=== PATIENT | male | born 1995 | race African-American/Black ===

== ENCOUNTER 2022-06-21 01:50 | Emergency (ER) | payer OTHER, SELFPAY ==
[2022-06-21 01:54] VITALS: BP 157/92; PULSE 99; RESP 18; TEMP 36.2; O2SAT 98
--- NOTE | 2022-06-21 02:05 | ED.DENTAL ---
HPI - Dental/Oral General Chief complaint: Dental/Oral Stated complaint: toothache Time Seen by Provider: 06/21/22 02:00 Source: patient Mode of arrival: ambulatory Limitations: no limitations History of Present Illness HPI Narrative: Patient presents to the emergency department for tooth ache noted over the last month. Reports he has a broken tooth that has been bothering him. He has an appointment with a dentist, but it is not till next month. Denies fever, erythema, or edema. MD Complaint: tooth pain Location: Tooth # (5) Related Data Allergies Allergy/AdvReac Type Severity Reaction Status Date / Time No Known Allergies Allergy Verified 06/21/22 01:51 Review of Systems Review of Systems: CONSTITUTIONAL: Denies fever ENT: Reports dentalgia All systems reviewed & are unremarkable except as noted in HPI and below PMFSH Past Medical History Medical History (Updated 06/21/22 @ 02:07 by Jojo Rodriguez PA-C) Bipolar depression Social History Social History (Updated 06/21/22 @ 02:07 by Jojo Rodriguez PA-C) Smoking status: Current some day smoker Tobacco type: e-cigarettes/vaping Exam Narrative: GENERAL: Well-appearing, well-nourished, and in no acute distress. HEAD: Normocephalic, atraumatic. EYES: EOMI. ENT: Mucous membranes moist. Oropharynx without tonsillar hypertrophy exudate or other lesions. Tooth #5 is broken without surrounding erythema or edema to suggest abscess NECK: Supple. No adenopathy or masses. CHEST: Clear to auscultation. No respiratory distress. No wheezes rales or rhonchi HEART: Regular rate and rhythm. No murmur heard. Normal peripheral pulses. EXTREMITIES: Normal range of motion. No edema. SKIN: Warm, dry, no rash. NEURO: No focal deficits. Alert and oriented x3. PSYCH: Normal mood and affect Course Vital Signs Vital signs: Vital Signs Temperature 97.2 F L 06/21/22 01:54 Pulse Rate 99 06/21/22 01:54 Respiratory Rate 18 06/21/22 01:54 Blood Pressure 157/92 H 06/21/22 01:54 Pulse Oximetry 98 06/21/22 01:54 Oxygen Delivery Room Air 06/21/22 01:54 Temperature 97.2 F L 06/21/22 01:54 Pulse Rate 99 06/21/22 01:54 Respiratory Rate 18 06/21/22 01:54 Blood Pressure 157/92 H 06/21/22 01:54 Pulse Oximetry 98 06/21/22 01:54 Oxygen Delivery Room Air 06/21/22 01:54 MDM - Dental/Oral MDM Narrative Medical decision making narrative: Patient presents to the ER for dentalgia. He is afebrile and nontoxic-appearing. No evidence for abscess on exam. Patient will be started on oral antibiotics and was instructed to follow-up with his dentist. He was given warnings to return to the ER Discharge Plan Discharge Clinical Impression: Toothache Patient Disposition: Home, Self-Care Condition: Stable Instructions: Antibiotic Form, Toothache (ED) Additional Instructions: Return to the Emergency Department if you experience fever >101, increasing swelling and redness of your tooth, or any other symptoms that are concerning to you Take antibiotic as prescribed. Tylenol or Ibuprofen as needed for pain. You can apply a dab of clove oil to a Qtip and apply to the tooth to help numb the area Follow up with your dentist Prescriptions: New amoxicillin-pot clavulanate 875-125 mg tablet 1 tablet PO Q12H 7 Days Qty: 14 0RF Follow-up/Referrals: PHYSICIAN,LAUNDRY EQUIPMENT OPERATOR [Primary Care Provider] -
[2022-06-21 02:47] VITALS: BP 150/78; PULSE 82; RESP 18; O2SAT 98
== END 2022-06-21 02:51 | disposition home or self-care (01) ==
LOC: ANHED 02:15
PROVIDERS: Emergency Provider General Practice
DX: K08.89 Other specified disorders of teeth and supporting structures (principal); F17.210 Nicotine dependence, cigarettes, uncomplicated; F31.9 Bipolar disorder, unspecified
CPT/HCPCS: 99283

== ENCOUNTER 2023-04-17 13:41 | Inpatient (IN) | payer MEDICAID, SELFPAY ==
[2023-04-17] VITALS (11 sets, daily range): BP systolic 123–159; BP diastolic 75–98; PULSE 61–117; RESP 13–25; TEMP 36.3–36.6; O2SAT 98–100; BMI 37.1
[2023-04-17 14:11] LABS: Glucose Point of Care > 500 mg/dl (65-105)
[2023-04-17 14:20] LABS: Basophils Percent Auto 0.5 % (0.2-1.2); Eosinophils Percent Auto 0.7 % (0-4.4); Hematocrit 46.8 % (42.0-52.0); Immature Granulocyte Absolute 0.02 K/mm3 (0.00-0.031); Immature Granulocyte Percent A 0.4 % (0-0.5); Lymphocytes Absolute Auto 1.44 K/mm3 (0.9-3.2); Lymphocytes Percent Auto 25.4 % (18.3-44.2); Mean Corpuscular HGB Conc 34.2 g/dl (32-36); Mean Corpuscular Hemoglobin 26.8 pg (26-34); Mean Corpuscular Volume 78.3 fl (80-100); Mean Platelet Volume 12.9 fl (7.4-10.4); Monocytes Absolute Auto 0.5 K/mm3 (0.1-0.6); Monocytes Percent Auto 8.5 % (2.6-8.5); Neutrophils Absolute Auto 3.7 K/mm3 (1.3-6.7); Neutrophils Percent Auto 64.5 % (45.5-73.1); Platelet Count Result 212 k/mm3 (150-375); Red Blood Count 5.98 M/mm3 (4.6-6.20); Red Cell Distribution Width 12.1 % (11.5-14.5); White Blood Count 5.7 K/mm3 (4.5-10.0)
[2023-04-17 14:39] LABS: Appearance Urine Clear (Clear); Bacteria Urine None Seen /hpf; Bilirubin Urine Negative (Negative); Color Urine Yellow (Yellow); Glucose Urine UA 3+ mg/dL (Negative); Ketones Urine 1+ mg/dL (Negative); Leukocyte Esterase Ur Negative LEU/UL (Negative); Nitrate Urine Negative (Negative); Protein Urine Trace mg/dL (Negative); RBC Urine 0-2 /hpf (0-2); Specific Grav Ur 1.031 (1.001-1.035); Squamous Epithelial Cell Urine None seen /hpf (Few); Urobilinogen Urine 0.2 mg/dL (<2.0); WBC Urine 0-5 /hpf
[2023-04-17 14:45] LABS: Beta-Hydroxybutyrate/Acetoacetate 3.27 mmol/L (0.02-0.27)
[2023-04-17 14:53] LABS: Granular Casts Urine Present /lpf; Need Manual Microscopic Reviewed
[2023-04-17] MEDS: SODIUM CHLORIDE 0.9% IV 1,000 ML 999 ML IV CONT ×2 (14:54→15:11)
[2023-04-17 14:58] LABS: Add Urine Microscopic? YES
[2023-04-17 15:11] LABS: Alanine Aminotransferase 51 U/L (6-50); Albumin Level 5.2 g/dL (3.5-5.1); Alkaline Phosphatase 124 U/L (38-126); Anion Gap 21 mmol/L (8-16); Aspartate Amino Transferase 29 U/L (17-59); Bilirubin,Total 1.3 mg/dL (0.2-1.3); Blood Urea Nitrogen 13 mg/dL (9-20); Calcium 10.4 mg/dL (8.4-10.2); Carbon Dioxide 18 mmol/L (22-30); Chloride 91 mmol/L (98-107); Estimated CRCL calculation 137 ml/min; Estimated Glomerular Filt Rate > 60; Glucose 648 mg/dL (65-110); Lipase 111 U/L (23-300); Magnesium 2.3 mg/dL (1.6-2.3); Phosphorus 5.9 mg/dL (2.5-4.5); Potassium 4.2 mmol/L (3.4-5.0); Sodium 130 mmol/L (137-145)
[2023-04-17] MEDS: INSULIN HUMAN REGULAR (*BKC) 100 UNITS/ML 14 UNITS IV PUSH (15:11)
--- NOTE | 2023-04-17 15:38 | ED.GENADULT ---
HPI - General Adult General Chief complaint: Nausea/Vomiting/Diarrhea Stated complaint: nausea Time Seen by Provider: 04/17/23 15:03 History of Present Illness HPI narrative: 27-year-old with a previous history of prediabetes presents to the ER with complaints of not feeling well for 1 week. Patient states he has been nauseated having occasional abdominal pain also states that he has been urinating a lot for past 1 week. No history of fever or chills. Related Data Home Medications Medication Instructions Recorded Confirmed aripiprazole 10 mg tablet (Abilify) 10 mg PO DAILY 04/17/23 04/17/23 atomoxetine 80 mg capsule mg PO 04/17/23 fluoxetine 40 mg capsule mg 04/17/23 Allergies Allergy/AdvReac Type Severity Reaction Status Date / Time No Known Allergies Allergy Verified 04/17/23 14:15 Review of Systems Review of Systems: All systems reviewed & are unremarkable except as noted in HPI and below Constitutional: Constitutional: Reports no additional constitutional complaints Eyes: Eyes: Reports no additional eye complaints ENT: Reports system reviewed and no additional complaints, except as documented Cardiovascular: Cardiovascular: Reports no additional cardiovascular complaints Respiratory: Respiratory: Reports no additional respiratory complaints Gastrointestinal: Gastrointestinal: Reports as per HPI Musculoskeletal: Musculoskeletal: Reports no additional musculoskeletal complaints Neurologic: Reports system reviewed and no additional complaints, except as documented Psychiatric: Psychiatric: Reports no additional psychiatric complaints Endocrine: Endocrine: Reports as per HPI Allergic/Immunologic: Allergic/Immunologic: Reports no additional allergic/immunologic complaints PMF Past Medical History Medical History (Updated 04/17/23 @ 15:48 by Matt Ferrara MD) Bipolar depression Social History Social History (Updated 06/21/22 @ 02:07 by Jojo Rodriguez PA-C) Smoking status: Current some day smoker Tobacco type: e-cigarettes/vaping Exam Narrative: GENERAL: Well-appearing, well-nourished, and in no acute distress. HEAD: Normocephalic, atraumatic. EYES: PERRLA and EOMI. NECK: Supple. CHEST: Clear to auscultation. No respiratory distress. HEART: Regular rate and rhythm. No murmur heard. Normal peripheral pulses. ABDOMEN: Soft, nontender, nondistended, normal active bowel sounds. EXTREMITIES: Normal range of motion. No edema. SKIN: Warm, dry, no rash. NEURO: No focal deficits. Alert and oriented x3. PSYCH: Normal mood and affect. Course Course Emergency Course: Patient was found to have high glucose IV insulin 14 units were ordered along with IV fluids. DKA protocol was initiated. Informed patient about his labs and his admission he is agreeable . Vital Signs Vital signs: Vital Signs Temperature 36.3 C L 04/17/23 14:02 Pulse Rate 116 H 04/17/23 14:02 Respiratory Rate 18 04/17/23 14:02 Blood Pressure 159/98 H 04/17/23 14:02 Pulse Oximetry 100 04/17/23 14:02 Oxygen Delivery Room Air 04/17/23 14:02 Temperature 36.3 C L 04/17/23 14:02 Pulse Rate 115 H 04/17/23 17:46 Respiratory Rate 15 04/17/23 17:46 Blood Pressure 136/98 H 04/17/23 17:46 Pulse Oximetry 98 04/17/23 17:46 Oxygen Delivery Room Air 04/17/23 14:02 Medical Decision Making MDM Narrative Medical decision making narrative: 27-year-old here with complaints of nausea, vomiting and abdominal pain which increased urination his initial blood sugar was 548 IV insulin and fluids were initiated and labs were drawn which showed he is in DKA. Discussed with block tester and hospitalist . Medical Records Medical records reviewed: Yes I reviewed the external patient's medical records. Vital Signs Vital Signs: Vital Signs Temperature 36.3 C L 04/17/23 14:02 Pulse Rate 116 H 04/17/23 14:02 Respiratory Rate 18 04/17/23 14:02 Blood Pressure 159/98 H 04/17/23
[2023-04-17 15:54] LABS: Hemoglobin A1C 13.5 % (<5.7)
[2023-04-17 15:55] LABS: Glucose Point of Care > 500 mg/dl (65-105)
[2023-04-17] MEDS: INSULIN HUMAN REGULAR (*BKC) 100 UNITS in SODIUM CHLORIDE 0.9% IV 99 ML 9.08 UNITS IV CONT (15:58)
[2023-04-17] MEDS: SODIUM CHLORIDE 0.9% IV 1,000 ML 125 ML IV CONT (16:13)
[2023-04-17 16:18] LABS: Anion Gap 18 mmol/L (8-16); Blood Urea Nitrogen 12 mg/dL (9-20); Calcium 9.8 mg/dL (8.4-10.2); Carbon Dioxide 20 mmol/L (22-30); Chloride 96 mmol/L (98-107); Estimated CRCL calculation 137 ml/min; Estimated Glomerular Filt Rate > 60; Glucose 504 mg/dL (65-110); Magnesium 2.3 mg/dL (1.6-2.3); Sodium 134 mmol/L (137-145)
[2023-04-17 16:48] LABS: Hemoglobin A1C 13.5 % (<5.7)
[2023-04-17 18:16] LABS: Glucose Point of Care 310 mg/dl (65-105)
[2023-04-17 18:16] LABS: Glucose Point of Care 397 mg/dl (65-105)
[2023-04-17 19:19] LABS: Glucose Point of Care 251 mg/dl (65-105)
--- NOTE | 2023-04-17 19:23 | ADMGEN ---
This patient, Luis Antonio Rascon, was admitted to Intensive Care Unit-3. @ 19:00. Patient/family oriented to hospital policies and general routines including ID bracelet, bed and alarms, visiting hours, pain management, procedures, bathroom and other care routines, personal items, smoking policy, room service/diet, and visiting hours. Information on how to activate the Rapid Response Team has been discussed. Patient/Family are encouraged to report perceived risks to care and to ask questions if they do not understand what they are told or what they should do.
--- NOTE | 2023-04-17 20:18 | PM.IMHP ---
H&P: HPI History of Present Illness Date/Time: 04/17/23 15:00 Chief Complaint: Nausea, vomiting, fatigue. Narrative: This is a very pleasant 27-year-old male with bipolar disorder presented to the emergency department via private vehicle from home for evaluation of nausea, vomiting, and fatigue. He has not been feeling well for approximately 1 week with daily nausea, frequent heartburn, occasional nonbloody and nonbilious emesis, rare loose stools, increased thirst, increased urination, and weakness and fatigue. He has lost a bit of weight but he and his girlfriend have been trying to eat better recent. He denies fever, chills, sweats, sinus congestion, sore throat, chest pain, cough, shortness of breath, sensations of racing heart, hematemesis, dysuria, melena, and hematochezia. He was afebrile on arrival to the emergency department with blood pressures in the 140s to 150s systolic and sinus tachycardia in the low 100s. Pertinent labs include a normal white blood cell count, sodium 130, potassium 4.2, anion gap 21, BUN 13, creatinine 1.10, glucose 648, calcium 10.4, phosphorus 5.9, beta hydroxybutyrate 3.27, hemoglobin A1c 13.5%. UA was positive for 3+ glucose and 1+ ketones. He was started on insulin drip and he is being admitted to the ICU for DKA and new onset diabetes. Review of Systems Review of Systems: Twelve systems were reviewed and are negative except for as per HPI. [facility] Past Medical History Medical History (Updated 04/17/23 @ 20:29 by Aurora Paez PA-C) Adult attention deficit hyperactivity disorder Bipolar depression Surgical History Surgical History (Updated 04/17/23 @ 20:23 by Aurora Paez PA-C) No pertinent past surgical history Family History Family History (Updated 04/17/23 @ 20:23 by Aurora Paez PA-C) Mother Diabetes mellitus Sibling Diabetes mellitus Social History Social History (Updated 04/17/23 @ 20:24 by Aurora Paez PA-C) Social History: Surrogate medical decision maker: No Rascon, mother. Code status: Full code. Smoking status: Current some day smoker Tobacco type: e-cigarettes/vaping Alcohol intake: never Substance use: never Meds Home Medications and Allergies Home Medications Medication Instructions Recorded Confirmed Type aripiprazole 10 mg tablet (Abilify) 10 mg PO DAILY 04/17/23 04/17/23 History atomoxetine 80 mg capsule mg PO 04/17/23 History fluoxetine 40 mg capsule mg 04/17/23 History Allergies Allergy/AdvReac Type Severity Reaction Status Date / Time No Known Allergies Allergy Verified 04/17/23 14:15 Vital Signs Vital Signs - 24 hr 04/17/23 14:02 04/17/23 15:42 04/17/23 16:02 Temperature 97.3 F L Pulse Rate 116 H 61 116 H Respiratory Rate 18 18 22 H Blood Pressure 159/98 H 141/91 H 143/91 H Pulse Oximetry 100 99 100 Oxygen Delivery Room Air 04/17/23 14:15 04/17/23 15:00 04/17/23 16:04 Temperature Pulse Rate 117 H 97 117 H Respiratory Rate 18 13 25 H Blood Pressure 154/89 H 141/91 H 143/91 H Pulse Oximetry 98 100 100 Oxygen Delivery 04/17/23 16:16 04/17/23 17:46 Temperature Pulse Rate 110 H 115 H Respiratory Rate 17 15 Blood Pressure 123/75 136/98 H Pulse Oximetry 100 98 Oxygen Delivery Exam Narrative: General: Mildly ill-appearing male supine in bed. Weight: 142 kg. BMI: 37.1. HEENT: PERRL, EOMI. Sclera anicteric. Tacky mucous membranes. Neck: Supple. Respiratory: Lungs are clear to auscultation bilaterally. Cardiovascular: Tachycardic with normal S1-S2. Telemetry shows sinus tachycardia. Gastrointestinal: Abdomen is soft, nontender, and nondistended with positive bowel sounds. Skin: Warm and dry. No rash or lesions on limited exam. Extremities: No cyanosis, clubbing, or edema. Radial and pedal pulses intact. Neurological: Alert. Cranial nerves 2-12 are grossly intact. No gross focal deficits to casual conversation. Psychiatric: Pleasant and coop
[2023-04-17 20:28] LABS: Anion Gap 12 mmol/L (8-16); Blood Urea Nitrogen 10 mg/dL (9-20); Calcium 9.7 mg/dL (8.4-10.2); Carbon Dioxide 23 mmol/L (22-30); Chloride 103 mmol/L (98-107); Estimated CRCL calculation 150 ml/min; Estimated Glomerular Filt Rate > 60; Glucose 235 mg/dL (65-110); Potassium 3.6 mmol/L (3.4-5.0); Sodium 138 mmol/L (137-145)
[2023-04-17 20:30] LABS: Glucose Point of Care 212 mg/dl (65-105)
[2023-04-17] MEDS: KCL 20 MEQ/D5/0.45% SOD CHL 1,000 ML 150 ML IV CONT (21:10)
[2023-04-17 21:34] LABS: Glucose Point of Care 196 mg/dl (65-105)
[2023-04-17] MEDS: PANTOPRAZOLE SODIUM IV 40 MG VIAL IV PUSH (21:53)
[2023-04-17 22:31] LABS: Glucose Point of Care 174 mg/dl (65-105)
[2023-04-17 23:34] LABS: Glucose Point of Care 182 mg/dl (65-105)
[2023-04-17 23:49] LABS: Anion Gap 13 mmol/L (8-16); Blood Urea Nitrogen 9 mg/dL (9-20); Calcium 9.5 mg/dL (8.4-10.2); Carbon Dioxide 23 mmol/L (22-30); Chloride 103 mmol/L (98-107); Estimated CRCL calculation 166 ml/min; Estimated Glomerular Filt Rate > 60; Glucose 178 mg/dL (65-110); Potassium 3.5 mmol/L (3.4-5.0); Sodium 139 mmol/L (137-145)
[2023-04-18] VITALS (96 sets, daily range): BP systolic 122–164; BP diastolic 73–109; PULSE 83–116; RESP 11–27; TEMP 36.1–36.9; O2SAT 96–100; BMI 36.6
--- NOTE | 2023-04-18 | ECHO_ITS ---
Patient Info Name: Luis Antonio Rascon Age: 27 years : 1995 Gender: Male Ht: 77 in Wt: 309 lbs BSA: 2.80 m2 HR: 101 bpm BP: 139 / 84 mmHg Heart Rhythm: Sinus Rhythm Technical Quality: Fair Exam Date: 04/18/2023 4:32 PM Exam Location: [facility] Card Pulmonary Patient Status: Inpatient Admit Date: 04/17/2023 Staff Ordering Physician: Joni Jacques MD Private Banker: Shannan Chi RDCS Attending Provider: Suzie Ibrahim DO Exam Type: CA echo dop color flow w con Study Info Indications - HTN R94.31 - Abnormal electrocardiogram ECG EKG Complete two-dimensional, color flow and Doppler transthoracic echocardiogram is performed with contrast to opacify the left ventricle and to improve the deliniation of the left ventricle endocardial borders. Contrast/Agitated Saline Contrast/Ag. Saline: Definity Amount: 3.00 ml Administered By: Shannan Chi RDCS Existing IV Access: Yes IV Access Condition: patent with no signs of infiltration Summary 1. Definity contrast administered improved wall motion interpretation. 2. Left ventricular chamber dimension is normal. 3. Left ventricular systolic function is normal, estimated at 65-70%. 4. There is moderate concentric increased left ventricular wall thickness. 5. The left ventricular diastolic function is grade II diastolic dysfunction. 6. E/e' 10 is mildly elevated. 7. There is trace tricuspid valve regurgitation. 8. No pulmonary hypertension, estimated pulmonary arterial systolic pressure is 21 mmHg. Left Ventricle E/e' 10 is mildly elevated. Definity contrast administered improved wall motion interpretation. Left ventricular chamber dimension is normal. Left ventricular systolic function is normal, estimated at 65-70%. There is moderate concentric increased left ventricular wall thickness. The left ventricular diastolic function is grade II diastolic dysfunction. Right Ventricle Right ventricular systolic function is normal and with normal TAPSE 2.2 cm. Right ventricular chamber dimension is normal. Left Atria Left atrial chamber dimension is normal. Right Atria Right atrial chamber dimension is normal. Aortic Valve The aortic valve is trileaflet. There is no aortic valve stenosis. There is no aortic valve regurgitation. Pulmonic Valve There is no pulmonic regurgitation. Mitral Valve There is no mitral valve stenosis. There is no mitral valve regurgitation. Tricuspid Valve There is trace tricuspid valve regurgitation. No pulmonary hypertension, estimated pulmonary arterial systolic pressure is 21 mmHg. Pericardium/Pleural There is no pericardial effusion. Inferior Vena Cava Normal inferior vena cava with >50% collapse upon inspiration consistent with normal right atrial pressure, 5 mmHg. Aorta The aortic root size at the sinus of Valsalva is normal. Left Ventricular Outflow Tract Name Value Normal LVOT 2D LVOT Diameter 2.25 cm LVOT Doppler LVOT Peak Gradient 5 mmHg LVOT Mean Gradient 3 mmHg LVOT VTI 19.69 cm LVOT VTI/AV VTI Ratio 1.02 LVOT Stroke Volume
[2023-04-18 00:50] LABS: Glucose Point of Care 159 mg/dl (65-105)
[2023-04-18 01:45] LABS: Glucose Point of Care 149 mg/dl (65-105)
[2023-04-18 03:03] LABS: Glucose Point of Care 193 mg/dl (65-105)
[2023-04-18] MEDS: KCL 20 MEQ/D5/0.45% SOD CHL 1,000 ML 150 ML IV CONT (03:53)
[2023-04-18 04:04] LABS: Glucose Point of Care 151 mg/dl (65-105)
[2023-04-18 04:23] LABS: Hematocrit 45.2 % (42.0-52.0); Mean Corpuscular HGB Conc 33.2 g/dl (32-36); Mean Corpuscular Hemoglobin 26.3 pg (26-34); Mean Corpuscular Volume 79.3 fl (80-100); Platelet Count Result 184 k/mm3 (150-375); Red Cell Distribution Width 12.1 % (11.5-14.5); White Blood Count 5.2 K/mm3 (4.5-10.0)
[2023-04-18 04:34] LABS: Alanine Aminotransferase 46 U/L (6-50); Albumin Level 4.6 g/dL (3.5-5.1); Alkaline Phosphatase 81 U/L (38-126); Anion Gap 12 mmol/L (8-16); Aspartate Amino Transferase 44 U/L (17-59); Bilirubin,Total 1.2 mg/dL (0.2-1.3); Blood Urea Nitrogen 8 mg/dL (9-20); Calcium 9.5 mg/dL (8.4-10.2); Carbon Dioxide 23 mmol/L (22-30); Chloride 104 mmol/L (98-107); Estimated CRCL calculation 166 ml/min; Estimated Glomerular Filt Rate > 60; Glucose 141 mg/dL (65-110); Magnesium 2.1 mg/dL (1.6-2.3); Potassium 3.4 mmol/L (3.4-5.0); Sodium 139 mmol/L (137-145)
[2023-04-18 05:08] LABS: Glucose Point of Care 193 mg/dl (65-105)
[2023-04-18 06:03] LABS: Glucose Point of Care 141 mg/dl (65-105)
[2023-04-18] MEDS: INSULIN HUMAN REGULAR (*BKC) 100 UNITS in SODIUM CHLORIDE 0.9% IV 99 ML 6.5 UNITS IV CONT (06:11)
[2023-04-18 07:10] LABS: Glucose Point of Care 177 mg/dl (65-105)
[2023-04-18 08:03] LABS: Anion Gap 9 mmol/L (8-16); Blood Urea Nitrogen 7 mg/dL (9-20); Carbon Dioxide 24 mmol/L (22-30); Chloride 105 mmol/L (98-107); Estimated CRCL calculation 165 ml/min; Estimated Glomerular Filt Rate > 60; Glucose 171 mg/dL (65-110); Potassium 3.3 mmol/L (3.4-5.0); Sodium 138 mmol/L (137-145)
[2023-04-18 08:17] LABS: Glucose Point of Care 173 mg/dl (65-105)
[2023-04-18] MEDS: PANTOPRAZOLE SODIUM IV 40 MG VIAL IV PUSH (09:13)
[2023-04-18] MEDS: ENOXAPARIN 40 MG/0.4 ML SYRINGE SUB-Q (09:13)
[2023-04-18] MEDS: POTASSIUM CHLORIDE 20 MEQ TABLET 40 MEQ PO (09:22)
[2023-04-18] MEDS: KCL 20 MEQ/0.45% NS 1,000 ML 100 ML IV CONT (09:28)
[2023-04-18 09:31] LABS: Glucose Point of Care 161 mg/dl (65-105)
--- NOTE | 2023-04-18 09:51 | WPDCNINT ---
Assessment and Plan Assessment and plan (1) DKA (diabetic ketoacidosis): Code(s): E11.10 - Type 2 diabetes mellitus with ketoacidosis without coma Status: Acute Assessment and Plan: Patient was treated with iVF bolus and infusion Patient was started on insulin infusion and Q1H glucose monitoring Serial labs were done and patient's anion gap has now closed he is also clinically improved Replace low potassium Start diabetic diet Start Lantus but will continue insulin infusion until insulin requirement is down and then will transition to subcutaneous insulin Change IV fluids to half-normal saline with potassium commonwealth attorney and dietitian consult (2) New onset type 2 diabetes mellitus: Code(s): E11.9 - Type 2 diabetes mellitus without complications Status: Acute Assessment and Plan: See above (3) Bipolar depression: Code(s): F31.9 - Bipolar disorder, unspecified Status: Acute Assessment and Plan: Resume home medications of fluoxetine Abilify and atomoxetine (4) Elevated blood pressure reading: Code(s): R03.0 - Elevated blood-pressure reading, without diagnosis of hypertension Status: Acute Assessment and Plan: Blood pressure is elevated 140 range this morning. Will start antihypertensive if remains elevated. Plan DVT prophylaxis -patient is ambulating Stress ulcer prophylaxis - Nutrition -diabetic diet Code Status - Full Code Total Critical Care Time - minutes Due to a high probability of clinically significant, life threatening deterioration, the patient required my highest level of preparedness to intervene emergently and I personally spent this critical care time directly and personally managing the patient. This critical care time included obtaining a history; examining the patient; pulse oximetry; ordering and review of studies; arranging urgent treatment with development of a management plan; evaluation of patient's response to treatment; frequent reassessment; and discussions with other providers. It was exclusive of separately billable procedures and treating other patients and teaching time. Please see Assessment and Plan section and the rest of the note for further information on patient assessment and treatment Slate Handler Consult Note Consult date: 04/18/23 Time Seen: 09:00 Reason for consult: DKA HPI: Luis Antonio Rascon is a 27 year old male with history of bipolar disorder presented yesterday for feeling sick from last 2 weeks. He does not have any history of diabetes but 2 weeks ago he started having nausea which was later as stated with vomiting but no blood in it. He states he was having polyuria but no dysuria hematuria. He also had mild Winston abdominal pain is intermittent. He had excessive thirst felt too weak and fatigued. He denied any chest pain fever cough shortness of breath chest pain headache blurring of vision dizziness or loss consciousness. All other systems were reviewed and were negative In ER he was afebrile on arrival to the emergency department with blood pressures in the 140s to 150s systolic and sinus tachycardia in the low 100s. Pertinent labs include a normal white blood cell count, sodium 130, potassium 4.2, anion gap 21, BUN 13, creatinine 1.10, glucose 648, calcium 10.4, phosphorus 5.9, beta hydroxybutyrate 3.27, hemoglobin A1c 13.5%. UA was positive for 3+ glucose and 1+ ketones. He was started on insulin drip and he is being admitted to the ICU for DKA and new onset diabetes. This morning he states he feels much better and denies any specific complaints. He states he would like to eat food and denies any nausea vomiting abdominal pain. Patient denies fever, chest pain, shortness of breath, cough, diarrhea, headache or constipation. He had no bowel movement since coming to the hospital. All other systems were reviewed and were negative Review of Systems Review of Systems: All systems reviewed & are unremarkabl
[2023-04-18] MEDS: POTASSIUM CHLORIDE INJ 40 MEQ in SODIUM CHLORIDE 0.9% IV 500 ML 130 MEQ IVPB (10:22)
[2023-04-18] MEDS: FLUoxetine HCL 20 MG CAPSULE 40 MG PO (10:29)
[2023-04-18] MEDS: ARIPiprazole 10 MG TABLET PO (10:29)
[2023-04-18 10:30] LABS: Glucose Point of Care 125 mg/dl (65-105)
[2023-04-18] MEDS: INSULIN GLARGINE (*BKC) 100 UNITS/ML 30 UNITS SUB-Q (10:30)
[2023-04-18 11:50] LABS: Anion Gap 8 mmol/L (8-16); Blood Urea Nitrogen 6 mg/dL (9-20); Calcium 8.7 mg/dL (8.4-10.2); Carbon Dioxide 21 mmol/L (22-30); Chloride 103 mmol/L (98-107); Estimated CRCL calculation 165 ml/min; Estimated Glomerular Filt Rate > 60; Glucose 225 mg/dL (65-110); Potassium 4.1 mmol/L (3.4-5.0); Sodium 132 mmol/L (137-145)
[2023-04-18 12:20] LABS: Glucose Point of Care 254 mg/dl (65-105)
[2023-04-18 13:12] LABS: Glucose Point of Care 240 mg/dl (65-105)
--- NOTE | 2023-04-18 14:51 | ECG_ITS ---
Measurements Intervals [place] Rate: 97 P: 35 IN: 172 QRS: 16 QRSD: 97 T: 5 QT: 333 QTc: 424 Interpretive Statements SINUS RHYTHM ST ELEVATION IN ANTEROLAT/HIGH LAT LEADS, PROBABLY EARLY REPOLARIZATION BASELINE ARTIFACT- II, III, AVF BORDERLINE ECG NO PREVIOUS ECG AVAILABLE FOR COMPARISON Electronically Signed On 04-18-2023 15:19:16 CDT by Abiodun Mir D.O.
[2023-04-18] MEDS: INSULIN ASPART (*BKC) 100 UNITS/ML SUB-Q ×3 (16:25→21:32)
[2023-04-18 16:27] LABS: Glucose Point of Care 326 mg/dl (65-105)
[2023-04-18 16:27] LABS: Glucose Point of Care 262 mg/dl (65-105)
[2023-04-18] MEDS: PERFLUTREN LIPID MICROSPHERES 1.5 ML VIAL DILUTED TO 10 ML TOTAL VOLUME IV PUSH (17:07)
[2023-04-18] MEDS: LOSARTAN POTASSIUM 50 MG TABLET PO (17:12)
--- NOTE | 2023-04-18 17:23 | IVDEFINITY ---
Prior to administration of IV Definity the patient was educated on the risks and benefits of the imaging enhancing agent including potential adverse side effects. The patient verbalized understanding. Allergies were verified. No exclusion criteria were identified and at least one of the following inclusion criteria were met: 1) physician request, 2) patient technically difficult to image (per the [place] [employer]ch[employer] guidelines of two or more segments not discernable within the apical view), or 3) questionable left ventricular function. ?
--- NOTE | 2023-04-18 17:41 | WPDPN ---
Progress Note: A&P Assessment and Plan (1) Diabetic ketoacidosis associated with type 2 diabetes mellitus: Code(s): E11.10 - Type 2 diabetes mellitus with ketoacidosis without coma Status: Acute Assessment and Plan: Patient presents with hyperglycemia, elevated anion gap, and ketosis. Insulin drip to be titrated per DKA protocol. Monitor hourly Accu-Cheks and q.4 hours BMPs. Transition to long-acting insulin upon resolution of DKA. 04/18/2023 interval history: 27-year-old male with history of bipolar presented to emergency depart for nausea, vomiting and fatigue, was found to have DKA patient was started on insulin infusion, his blood sugar have trended down is off the drip and being treated with a subcu insulin short-acting and long-acting, patient states is feeling better compared to when he arrived. Patient has seen by nurses educator, patient mother has diabetes and is familiar with diabetic management. (2) New onset type 2 diabetes mellitus: Code(s): E11.9 - Type 2 diabetes mellitus without complications Status: Acute Assessment and Plan: Patient endorses polyuria, polydipsia, nausea, and fatigue the last week or so. A1c is 13.5%. Start long-acting insulin upon resolution of DKA. Dietitian and nurses educator consult. (3) Dehydration: Code(s): E86.0 - Dehydration Status: Acute Assessment and Plan: Patient looks dry on exam and by labs. Continue aggressive IV fluid rehydration. Monitor BMP. (4) Bipolar depression: Code(s): F31.9 - Bipolar disorder, unspecified Status: Acute Assessment and Plan: Well controlled per patient report. Continue aripiprazole, atomoxetine, and fluoxetine. Plan Medical decision making narrative ? History obtained from: Patient. ? History from independent sources: n/a ? External chart review: n/a ? New problems addressed: DKA, new onset diabetes. ? Chronic illnesses addressed: Bipolar disorder. ? Independent interpretation of studies: Labs, imaging, EKG, and all reports were personally reviewed. ? Discussion of management with other providers: Bipolar disorder. ? Shared decision making: Findings were reviewed and discussed with the patient, including plans for further workup and treatment options. Questions solicited and answered to satisfaction. Patient agrees with current plan of care. ? Time spent on encounter: 60 minutes. Subjective Date/time seen: 04/18/23 17:41 Interval history: HPI-Narrative: This is a very pleasant 27-year-old male with bipolar disorder presented to the emergency department via private vehicle from home for evaluation of nausea, vomiting, and fatigue.? He has not been feeling well for approximately 1 week with daily nausea, frequent heartburn, occasional nonbloody and nonbilious emesis, rare loose stools, increased thirst, increased urination, and weakness and fatigue. He has lost a bit of weight but he and his girlfriend have been trying to eat better recent. He denies fever, chills, sweats, sinus congestion, sore throat, chest pain, cough, shortness of breath, sensations of racing heart, hematemesis, dysuria, melena, and hematochezia. He was afebrile on arrival to the emergency department with blood pressures in the 140s to 150s systolic and sinus tachycardia in the low 100s. Pertinent labs include a normal white blood cell count, sodium 130, potassium 4.2, anion gap 21, BUN 13, creatinine 1.10, glucose 648, calcium 10.4, phosphorus 5.9, beta hydroxybutyrate 3.27, hemoglobin A1c 13.5%. UA was positive for 3+ glucose and 1+ ketones. He was started on insulin drip and he is being admitted to the ICU for DKA and new onset diabetes. 04/18/2023 interval history: 27-year-old male with history of bipolar presented to emergency depart for nausea, vomiting and fatigue, was found to have DKA patient was started on insulin infusion, his blood sugar have trended do
[2023-04-18 18:46] LABS: Anion Gap 10 mmol/L (8-16); Blood Urea Nitrogen 6 mg/dL (9-20); Calcium 8.2 mg/dL (8.4-10.2); Carbon Dioxide 18 mmol/L (22-30); Chloride 102 mmol/L (98-107); Estimated CRCL calculation 149 ml/min; Estimated Glomerular Filt Rate > 60; Glucose 357 mg/dL (65-110); Potassium 3.7 mmol/L (3.4-5.0); Sodium 130 mmol/L (137-145)
[2023-04-18 21:38] LABS: Glucose Point of Care 176 mg/dl (65-105)
[2023-04-18 21:38] LABS: Glucose Point of Care 372 mg/dl (65-105)
[2023-04-19] VITALS (52 sets, daily range): BP systolic 110–125; BP diastolic 59–78; PULSE 87–123; RESP 11–36; TEMP 36.8; O2SAT 99–100
[2023-04-19 03:54] LABS: Hematocrit 41.3 % (42.0-52.0); Hemoglobin 13.8 g/dL (14.0-18.0); Mean Corpuscular HGB Conc 33.4 g/dl (32-36); Mean Corpuscular Hemoglobin 26.5 pg (26-34); Mean Corpuscular Volume 79.4 fl (80-100); Platelet Count Result 163 k/mm3 (150-375); Red Cell Distribution Width 12.4 % (11.5-14.5); White Blood Count 4.7 K/mm3 (4.5-10.0)
[2023-04-19 04:05] LABS: Magnesium 1.5 mg/dL (1.6-2.3); Phosphorus 3.7 mg/dL (2.5-4.5)
[2023-04-19 07:39] LABS: Glucose Point of Care 311 mg/dl (65-105)
[2023-04-19] MEDS: INSULIN GLARGINE (*BKC) 100 UNITS/ML 30 UNITS SUB-Q (08:20)
[2023-04-19] MEDS: INSULIN ASPART (*BKC) 100 UNITS/ML SUB-Q ×4 (08:20→12:09)
[2023-04-19] MEDS: PANTOPRAZOLE SODIUM IV 40 MG VIAL IV PUSH (08:21)
[2023-04-19] MEDS: LOSARTAN POTASSIUM 50 MG TABLET PO (08:21)
[2023-04-19] MEDS: ARIPiprazole 10 MG TABLET PO (08:22)
[2023-04-19] MEDS: ENOXAPARIN 40 MG/0.4 ML SYRINGE SUB-Q (08:22)
[2023-04-19] MEDS: FLUoxetine HCL 20 MG CAPSULE 40 MG PO (08:22)
--- NOTE | 2023-04-19 11:43 | PM.DS ---
DS: Admitting Diagnosis Discharge Date 04/19/2023 Admitting Diagnosis Nausea, vomiting, fatigue. DS: Discharge Diagnosis Discharge Diagnosis (1) Diabetic ketoacidosis associated with type 2 diabetes mellitus: Code(s): E11.10 - Type 2 diabetes mellitus with ketoacidosis without coma Status: Acute Assessment and Plan: Patient presents with hyperglycemia, elevated anion gap, and ketosis. Insulin drip to be titrated per DKA protocol. Monitor hourly Accu-Cheks and q.4 hours BMPs. Transition to long-acting insulin upon resolution of DKA. 04/18/2023 interval history: 27-year-old male with history of bipolar presented to emergency depart for nausea, vomiting and fatigue, was found to have DKA patient was started on insulin infusion, his blood sugar have trended down is off the drip and being treated with a subcu insulin short-acting and long-acting, patient states is feeling better compared to when he arrived. Patient has seen by rehab office coordinator, patient mother has diabetes and is familiar with diabetic management. (2) New onset type 2 diabetes mellitus: Code(s): E11.9 - Type 2 diabetes mellitus without complications Status: Acute Assessment and Plan: Patient endorses polyuria, polydipsia, nausea, and fatigue the last week or so. A1c is 13.5%. Start long-acting insulin upon resolution of DKA. Dietitian and rehab office coordinator consult. (3) Dehydration: Code(s): E86.0 - Dehydration Status: Acute Assessment and Plan: Patient looks dry on exam and by labs. Continue aggressive IV fluid rehydration. Monitor BMP. (4) Bipolar depression: Code(s): F31.9 - Bipolar disorder, unspecified Status: Acute Assessment and Plan: Well controlled per patient report. Continue aripiprazole, atomoxetine, and fluoxetine. Plan Medical decision making narrative ? History obtained from: Patient. ? History from independent sources: n/a ? External chart review: n/a ? New problems addressed: DKA, new onset diabetes. ? Chronic illnesses addressed: Bipolar disorder. ? Independent interpretation of studies: Labs, imaging, EKG, and all reports were personally reviewed. ? Discussion of management with other providers: Bipolar disorder. ? Shared decision making: Findings were reviewed and discussed with the patient, including plans for further workup and treatment options. Questions solicited and answered to satisfaction. Patient agrees with current plan of care. ? Time spent on encounter: 60 minutes. DS: Summary Hospital Course Reason for hospitalization: Chief Complaint: Nausea, vomiting, fatigue. Narrative: This is a very pleasant 27-year-old male with bipolar disorder presented to the emergency department via private vehicle from home for evaluation of nausea, vomiting, and fatigue.? He has not been feeling well for approximately 1 week with daily nausea, frequent heartburn, occasional nonbloody and nonbilious emesis, rare loose stools, increased thirst, increased urination, and weakness and fatigue. He has lost a bit of weight but he and his girlfriend have been trying to eat better recent. He denies fever, chills, sweats, sinus congestion, sore throat, chest pain, cough, shortness of breath, sensations of racing heart, hematemesis, dysuria, melena, and hematochezia. He was afebrile on arrival to the emergency department with blood pressures in the 140s to 150s systolic and sinus tachycardia in the low 100s. Pertinent labs include a normal white blood cell count, sodium 130, potassium 4.2, anion gap 21, BUN 13, creatinine 1.10, glucose 648, calcium 10.4, phosphorus 5.9, beta hydroxybutyrate 3.27, hemoglobin A1c 13.5%. UA was positive for 3+ glucose and 1+ ketones. He was started on insulin drip and he is being admitted to the ICU for DKA and new onset diabetes. Hospital Course: ?27-year-old male with history of bipolar presented to emergency depa
[2023-04-19 11:58] LABS: Glucose Point of Care 356 mg/dl (65-105)
[2023-04-19 12:59] LABS: Glucose Point of Care 423 mg/dl (65-105)
[2023-04-19] MEDS: INSULIN GLARGINE (*BKC) 100 UNITS/ML 20 UNITS SUB-Q (13:18)
--- NOTE | 2023-04-19 13:32 | PC.NURSE ---
Patient glucose for lunch 456 dl/ml, rechecked prior to discharge, glucose down to 423 dl/ml. Called Dr Deluna and received a one time dose of 20units of Lantus. Administered Lantus , educated patient on the importance of glucose monitoring, storage in the cells and administering insulin as prescribed. Patient has an appointment next Sunday with a new PCP for follow up.
== END 2023-04-19 13:22 | disposition home or self-care (01) | DRG 420 ==
LOC: ANHED 15:48 → ANHICU 18:39
PROVIDERS: Emergency Medicine; Internal Medicine; Physician Assistant; Admitting Provider Student in an Organized Health Care Education/Training Program; Emergency Provider Family Medicine; Visit Provider Family Medicine
DX: E11.10 Type 2 diabetes mellitus with ketoacidosis without coma (principal); E86.0 Dehydration; F31.9 Bipolar disorder, unspecified; F17.290 Nicotine dependence, other tobacco product, uncomplicated; R03.0 Elevated blood-pressure reading, without diagnosis of hypertension
CPT/HCPCS: 36415; 80048; 80053; 81001; 82010; 82948; 83036; 83690; 83735; 84100; 84443; 85025; 85027; 93005; 96361; 96374; 99285; A9270; C8929; C9113; J1650; J1815; J3480; J7030; J7040; Q9957

== ENCOUNTER 2024-04-11 16:12 | Emergency (ER) | payer MEDICAID, SELFPAY ==
[2024-04-11 16:23] VITALS: BP 154/102; PULSE 114; RESP 20; TEMP 36.2; O2SAT 99
--- NOTE | 2024-04-11 16:32 | ECG_ITS ---
SEE SCANNED COPY FOR CONFIRMED REPORT MTDD
--- NOTE | 2024-04-11 16:33 | ED.GENADULT ---
HPI - General Adult General Chief complaint: Overdose <Ramonita Mueller PA-C - Last Filed: 04/11/24 16:38> Stated complaint: mouth twitching <Ramonita Mueller PA-C - Last Filed: 04/11/24 16:38> Time Seen by Provider: 04/11/24 17:01 <Ramonita Mueller PA-C - Last Filed: 04/11/24 16:38> Focused HPI: 28-year-old male with history of insulin-dependent diabetes and bipolar disorder presents to the emergency department for tongue twitching for 3 hours. Patient takes Vraylar, Abilify, atomoxetine and fluoxetine. States he recently started is regular back up couple of days ago and today developed twitching and uncontrollable spasms of his tongue. States he has never had this happen before. Patient also notes that he attempted suicide last night by taking 9 ibuprofen and 7 Vraylar around 9:30-10 p.m. last night in an attempt to kill himself. He denies current SI or HI. He does admit to being hospitalized many years ago for psychiatric care. He denies alcohol or drug use or access to a firearm. GENERAL: Well-appearing, well-nourished, and in no acute distress. HEAD: Normocephalic, atraumatic. CHEST: Clear to auscultation. ?No respiratory distress. HEART: Regular rate and rhythm.? NEURO: ?Alert and oriented x3. Uncontrollable tongue and lip movement consistent with tardive dyskinesia Patient screened in triage and initial orders placed.? ?Additional care and disposition to be based upon?diagnostic testing and treatment. <Ramonita Mueller PA-C - Last Filed: 04/11/24 16:38> Focused HPI: 28-year-old male with history of insulin-dependent diabetes and bipolar disorder presents to the emergency department for tongue twitching for 3 hours. Patient takes Vraylar, Abilify, atomoxetine and fluoxetine. States he recently started is regular back up couple of days ago and today developed twitching and uncontrollable spasms of his tongue. States he has never had this happen before. Patient also notes that he attempted suicide last night by taking 9 ibuprofen and 7 Vraylar around 9:30-10 p.m. last night in an attempt to kill himself. He denies current SI or HI. He does admit to being hospitalized many years ago for psychiatric care. He denies alcohol or drug use or access to a firearm. GENERAL: Well-appearing, well-nourished, and in no acute distress. HEAD: Normocephalic, atraumatic. CHEST: Clear to auscultation. ?No respiratory distress. HEART: Regular rate and rhythm.? NEURO: ?Alert and oriented x3. Uncontrollable tongue and lip movement consistent with tardive dyskinesia Patient screened in triage and initial orders placed.? ?Additional care and disposition to be based upon?diagnostic testing and treatment. <GEMA Acuna Last Filed: 04/11/24 21:29> Source: patient <GEMA Acuna Last Filed: 04/11/24 21:29> Mode of arrival: ambulatory <GEMA Acuna Last Filed: 04/11/24 21:29> Limitations: no limitations <GEMA Acuna Last Filed: 04/11/24 21:29> History of Present Illness HPI narrative: Agree with above HPI. States he fell asleep after the overdose attempt last night and woke up this morning feeling normal. He then developed twitching of his mouth and tongue about 4 hours ago, which prompted his presentation. <GEMA Acuna Last Filed: 04/11/24 21:29> Related Data Home medications: Home Medications Medication Instructions Recorded Confirmed aripiprazole 10 mg tablet (Abilify) 10 mg PO DAILY 04/17/23 04/17/23 atomoxetine 80 mg capsule 80 mg PO DAILY 04/17/23 04/17/23 fluoxetine 40 mg capsule 40 mg PO DAILY 04/17/23 04/17/23 <GEMA Junior Last Filed: 04/11/24 16:38> Allergies/adverse reactions: Allergies Allergy/AdvReac Type Severity Reaction Status Date / Time No Known Allergies Allergy Verified 04/11/24 16:35 <GEMA Junior Last Filed: 04/11/24 16:38> Review
[2024-04-11 17:08] LABS: Basophils Percent Auto 0.6 % (0.2-1.2); Eosinophils Absolute Auto 0.1 K/mm3 (0-0.3); Eosinophils Percent Auto 1.9 % (0-4.4); Hematocrit 45.4 % (42.0-52.0); Hemoglobin 14.5 g/dL (14.0-18.0); Immature Granulocyte Absolute 0.01 K/mm3 (0.00-0.031); Immature Granulocyte Percent A 0.1 % (0-0.5); Lymphocytes Absolute Auto 2.07 K/mm3 (0.9-3.2); Lymphocytes Percent Auto 30.6 % (18.3-44.2); Mean Corpuscular HGB Conc 31.9 g/dl (32-36); Mean Corpuscular Hemoglobin 26.9 pg (26-34); Mean Corpuscular Volume 84.2 fl (80-100); Mean Platelet Volume 10.8 fl (7.4-10.4); Monocytes Absolute Auto 0.5 K/mm3 (0.1-0.6); Neutrophils Percent Auto 59.8 % (45.5-73.1); Platelet Count Result 226 k/mm3 (150-375); Red Blood Count 5.39 M/mm3 (4.6-6.20); Red Cell Distribution Width 13.1 % (11.5-14.5); White Blood Count 6.8 K/mm3 (4.5-10.0)
[2024-04-11 17:10] LABS: Appearance Urine Clear (Clear); Bilirubin Urine Negative (Negative); Blood Urine Negative (Negative); Color Urine Yellow (Yellow); Glucose Urine UA Trace mg/dL (Negative); Ketones Urine Negative (Negative); Leukocyte Esterase Ur Negative LEU/UL (Negative); Nitrate Urine Negative (Negative); Protein Urine Negative (Negative); Specific Grav Ur 1.008 (1.001-1.035); Urobilinogen Urine 0.2 mg/dL (<2.0); pH Urine 5.5 (5.0-9.0)
[2024-04-11 17:20] LABS: Acetaminophen < 10 ug/mL (10-30); Ethanol < 10 mg/dL (<10); Salicylate < 1.0 mg/dL (2-20)
[2024-04-11 17:21] LABS: Alanine Aminotransferase 29 U/L (6-50); Albumin Level 4.5 g/dL (3.5-5.1); Alkaline Phosphatase 70 U/L (38-126); Anion Gap 8 mmol/L (4-12); Aspartate Amino Transferase 20 U/L (17-59); Bilirubin,Total 0.5 mg/dL (0.2-1.3); Blood Urea Nitrogen 13 mg/dL (9-20); Calcium 9.1 mg/dL (8.4-10.2); Carbon Dioxide 25 mmol/L (22-30); Chloride 106 mmol/L (98-107); Estimated Glomerular Filt Rate > 60; Glucose 218 mg/dL (65-110); Potassium 4.4 mmol/L (3.4-5.0); Sodium 139 mmol/L (137-145)
[2024-04-11 17:27] LABS: Amphetamine Screen Urine Negative (Negative); Barbiturate Screen Urine Negative (Negative); Benzodiazepines Screen Urine Negative (Negative); Cannabinoid Screen Urine Negative (Negative); Cocaine Screen Urine Negative (Negative); Methadone Screen Urine Negative (Negative); Opiate Screen Urine Negative (Negative); Phencyclidine Screen Urine Negative (Negative)
[2024-04-11 17:33] VITALS: RESP 20
[2024-04-11 17:35] VITALS: BP 155/106; PULSE 101; PULSE 93; RESP 20; O2SAT 98
--- NOTE | 2024-04-11 17:52 | PC.NURSE ---
Spoke with Poison Control, Zoe ELLER # [id number]. States if pt took medication at 2130 last night he is clear.
[2024-04-11 17:54] LABS: Thyroid Stimulating Hormone 0.634 uIU/mL (0.465-4.680)
--- NOTE | 2024-04-11 17:59 | ED.OVERDOSE ---
HPI - Overdose General Chief Complaint: Overdose Stated Complaint: mouth twitching Time Seen by Provider: 04/11/24 17:01 Source: patient Mode of arrival: ambulatory Limitations: no limitations History of Present Illness HPI Narrative: Patient is a 28-year-old male who presents the ED with report of overdose. Related Data Home Medications Medication Instructions Recorded Confirmed aripiprazole 10 mg tablet (Abilify) 10 mg PO DAILY 04/17/23 04/17/23 atomoxetine 80 mg capsule 80 mg PO DAILY 04/17/23 04/17/23 fluoxetine 40 mg capsule 40 mg PO DAILY 04/17/23 04/17/23 Allergies Allergy/AdvReac Type Severity Reaction Status Date / Time No Known Allergies Allergy Verified 04/11/24 16:35 [facility] Past Medical History Medical History (Updated 04/18/23 @ 10:17 by Joni Jacques MD) Adult attention deficit hyperactivity disorder Bipolar depression Surgical History Surgical History (Updated 04/17/23 @ 20:23 by Aurora Paez PA-C) No pertinent past surgical history Family History Family History (Updated 04/17/23 @ 20:23 by Aurora Paez PA-C) Mother Diabetes mellitus Sibling Diabetes mellitus Social History Social History (Updated 04/17/23 @ 20:24 by Aurora Paez PA-C) Social History: Surrogate medical decision maker: No Rascon, mother. Code status: Full code. Smoking status: Current every day smoker Tobacco type: e-cigarettes/vaping Alcohol intake: former Substance use: never Lack of Transportation: YES Lack of Food: Never True Current Housing: I Have Housing Concerned About Future Housing: No Difficulty Paying Gas/Electric Bills: No Difficulty Paying for Meds: No Currently Unemployed: No Education: High School Diploma/GED Difficulty w/ Childcare or Family Care: No Spiritual care concerns: No Course Vital Signs Vital signs: Vital Signs Temperature 97.2 F L 04/11/24 16:23 Pulse Rate 114 H 04/11/24 16:23 Respiratory Rate 20 04/11/24 16:23 Blood Pressure 154/102 H 04/11/24 16:23 Pulse Oximetry 99 04/11/24 16:23 Oxygen Delivery Room Air 04/11/24 16:23 Temperature 97.2 F L 04/11/24 16:23 Pulse Rate 114 H 04/11/24 16:23 Respiratory Rate 20 04/11/24 17:33 Blood Pressure 154/102 H 04/11/24 16:23 Pulse Oximetry 99 04/11/24 16:23 Oxygen Delivery Room Air 04/11/24 17:40 MDM - Overdose Medical Records Attestation: I reviewed the patient's medical records. Lab Data Attestation: I reviewed the patient's lab results. 04/11/24 17:01 04/11/24 17:01 Labs: Lab Results 04/11/24 04/11/24 Range/Units 17:01 17:38 WBC 6.8 (4.5-10.0) K/mm3 RBC 5.39 (4.6-6.20) M/mm3 Hgb 14.5 (14.0-18.0) g/dL Hct 45.4 (42.0-52.0) % MCV 84.2 (80-100) fl MCH 26.9 (26-34) pg MCHC 31.9 L (32-36) g/dl RDW 13.1 (11.5-14.5) % Plt Count 226 (150-375) k/mm3 MPV 10.8 H (7.4-10.4) fl Immature Gran % (Auto) 0.1 (0-0.5) % Neut % (Auto) 59.8 (45.5-73.1) % Lymph % (Auto) 30.6 (18.3-44.2) % [place] % (Auto) 7.0 (2.6-8.5) % Eos % (Auto) 1.9 (0-4.4) % Baso % (Auto) 0.6 (0.2-1.2) % Lymph # (Auto) 2.07 (0.9-3.2) K/mm3 [place] # (Auto) 0.5 (0.1-0.6) K/mm3 Eos # (Auto) 0.1 (0-0.3) K/mm3 Baso # (Auto) 0.0 (0.0-0.1) K/mm3 Abs Immat Gran (auto) 0.01 (0.00-0.031) K/mm3 Absolute Neuts (auto) 4.0 (1.3-6.7) K/mm3 Absolute Nucleated RBC 0.000 (0.0-0.012) K/mm3 Nucleated RBC % 0.0 (0.0-0.2) % Sodium 139 (137-145) mmol/L Potassium 4.4 (3.4-5.0) mmol/L Chloride 106 (98-107) mmol/L Carbon Dioxide 25 (22-30) mmol/L Anion Gap 8 (4-12) mmol/L BUN 13 D (9-20) mg/dL Creatinine 1.20 (0.7-1.3) mg/dL Estim Creat Clear Calc Not Reportable Estimated GFR > 60 (59 - ) Glucose 218 H (65-110) mg/dL Calcium 9.1 (8.4-10.2) mg/dL Total Bilirubin 0.5 (0.2-1.3) mg/dL AST 20 (17-59) U/L ALT 29 (6-50) U/L
[2024-04-11 18:23] LABS: Magnesium 1.8 mg/dL (1.6-2.3)
[2024-04-11 18:24] LABS: SARS-CoV-2 RNA PCR Negative (Negative)
[2024-04-11 18:30] VITALS: BP 156/98; PULSE 93; RESP 19; O2SAT 99
[2024-04-11] MEDS: SODIUM CHLORIDE 0.9% IV 1,000 ML 999 ML IV CONT (18:39)
[2024-04-11] MEDS: diphenhydrAMINE HCl INJ 50 MG/ML VIAL 25 MG IV PUSH (18:40)
[2024-04-11 18:47] LABS: Add Urine Microscopic? NO
[2024-04-11 19:16] VITALS: BP 160/102; PULSE 98; RESP 18; O2SAT 100
== END 2024-04-11 21:53 | disposition home or self-care (01) ==
PROVIDERS: Physician Assistant; Emergency Provider Physician Assistant
DX: G24.01 Drug induced subacute dyskinesia (principal); T50.912A Poisoning by multiple unspecified drugs, medicaments and biological substances, intentional self-harm, initial encounter; F31.9 Bipolar disorder, unspecified; E11.9 Type 2 diabetes mellitus without complications; Z79.4 Long term (current) use of insulin; F17.290 Nicotine dependence, other tobacco product, uncomplicated
CPT/HCPCS: 36415; 80053; 80307; 81003; 83735; 84443; 85025; 87635; 93005; 96361; 96374; 99284; J1200; J7030

== ENCOUNTER 2024-05-01 16:49 | Emergency (ER) | payer OTHER, SELFPAY ==
[2024-05-01 17:04] VITALS: BP 169/104; PULSE 103; RESP 22; TEMP 36.6; O2SAT 100
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
[2024-05-01] MEDS: HYDROmorphone HCL INJ (*CRX) 1 MG/ML SYR IM (18:44)
[2024-05-01] MEDS: TETANUS,DIPHTHERIA,AC PERTUSSIS ADULT (0.5 ML) BOOSTRIX IM (18:54)
[2024-05-01 19:22] VITALS: BP 140/86; PULSE 93; RESP 20; O2SAT 98
--- NOTE | 2024-05-01 19:22 | PC.NURSE ---
Pt aware to follow up with Bre Garcia at [phone]
== END 2024-05-01 19:24 | disposition home or self-care (01) ==
PROVIDERS: Emergency Provider Emergency Medicine
DX: T23.221A Burn of second degree of single right finger (nail) except thumb, initial encounter (principal); T31.0 Burns involving less than 10% of body surface; Z23 Encounter for immunization; E11.9 Type 2 diabetes mellitus without complications; F31.9 Bipolar disorder, unspecified; F90.9 Attention-deficit hyperactivity disorder, unspecified type; F17.290 Nicotine dependence, other tobacco product, uncomplicated; X08.8XXA Exposure to other specified smoke, fire and flames, initial encounter; W40.8XXA Explosion of other specified explosive materials, initial encounter
CPT/HCPCS: 16020; 90471; 90715; 96372; 99283; J1170